=== PATIENT | male | born 1945 | race African-American/Black ===

== ENCOUNTER 2021-01-31 14:31 | Inpatient (IN) ==
[2021-01-31 17:59] LABS: ABS Lymphocytes 0.5 10^3/ul (1.0-4.8); ABS Monocytes 0.3 10^3/ul (0-0.8); ABS Neutrophils 1.7 10^3/ul (1.5-7.7); Eosinophil % 0.4 %; Hematocrit 31 % (42-52); Hemoglobin 10.2 g/dL (14.0-18.0); Lymphocyte % 18.8 %; Mean Corpuscular HGB Conc 33 g/dL (31-36); Mean Corpuscular Hemoglobin 29 pg (27-31); Mean Corpuscular Volume 90 fL (80-94); Mean Platelet Volume 9.1 fL (7.4-10.4); Nucleated Red Blood Cells % 0.1; Platelet Count 124 10^3/uL (150-450); Red Blood Count 3.49 10^6 /uL (4.18-5.48); Red Cell Distribution Width 15 % (10-15); White Blood Count 2.5 10^3/uL (3.5-10.8)
[2021-01-31 18:22] LABS: Albumin 3.6 g/dL (3.2-5.2); Albumin/Globulin Ratio 1.6 (1-3); C Reactive Protein 3.86 mg/L (<8.01); Calcium 8.7 mg/dL (8.6-10.3); Globulin 2.2 g/dL (2-4); Total Bilirubin 0.5 mg/dL (0.2-1.0); Total Protein 5.8 g/dL (6.4-8.9)
[2021-01-31 18:36] LABS: Potassium 6.4 mmol/L (3.5-5.0)
[2021-01-31] MEDS ORDERED: Albuterol 2.5mg/3 ml (0.083%) NEB.SOLN INH ONE (19:03)
[2021-01-31] MEDS ORDERED: Dextrose 50% VIAL 50 ml IV PRN (19:18)
[2021-01-31] MEDS ORDERED: Dextrose 50% VIAL 50 ml IV ONE (19:22)
[2021-01-31] MEDS ORDERED: Dextrose 50% Syringe 50 ml 25 GM/50 ML SYRINGE IV PUSH PRN ×2 (19:32→19:38)
[2021-01-31] MEDS ORDERED: Dextrose 50% Syringe 50 ml 25 GM/50 ML SYRINGE ONE (19:33)
[2021-01-31] MEDS ORDERED: Dextrose 50% Syringe 50 ml 25 GM/50 ML SYRINGE IV PUSH ONE (20:00)
[2021-01-31 21:43] LABS: Urine Appearance Cloudy; Urine Bilirubin Negative (Negative); Urine Blood Negative (Negative); Urine Color Yellow; Urine Glucose Negative (Negative); Urine Ketones Negative (Negative); Urine Nitrite Negative (Negative); Urine Protein 2+(100 mg/dL) (Negative); Urine Specific Gravity 1.013 (1.002-1.030); Urine Urobilinogen Negative (Negative)
[2021-01-31 21:52] LABS: Urine Bacteria 1+ (Absent); Urine Red Blood Cell Trace(0-2/hpf) (Absent); Urine Squamous Epithelial Cell Present (Absent); Urine White Blood Cell Absent (Absent)
[2021-01-31] MEDS ORDERED: NS 0.9% 1000 ml BAG 1,000 ML IV ONE (21:58)
[2021-01-31 22:52] LABS: Calcium 8.3 mg/dL (8.6-10.3)
[2021-01-31 22:53] LABS: Potassium 5.6 mmol/L (3.5-5.0)
[2021-01-31 22:57] LABS: Rapid COVID-19 Molecular Undetected (Undetected)
[2021-01-31] MEDS ORDERED: Lactated Ringers 1000 ml BAG 1,000 ML IV ONE (23:34)
[2021-02-01] MEDS ORDERED: Albuterol 2.5mg/3 ml (0.083%) NEB.SOLN INH ONE (02:09)
[2021-02-01] MEDS ORDERED: Patiromer POWDER 8.4 GM PAK PO ONE (02:10)
[2021-02-01 02:29] LABS: Corrected Retic Count 0.6 % (0.5-1.5); Hematocrit for Retic CNT 32 % (42-52); Immature Retic Fraction 0.36; RBC Retic Count 3.57 10^6/uL (4.18-5.48)
[2021-02-01 02:31] LABS: Activated Partial Thrombo Time 29.5 seconds (26.0-38.0); INR 1.09 (0.86-1.15)
[2021-02-01] MEDS ORDERED: D5W 500 ml BAG 500 ML IV SCH (03:00)
[2021-02-01 03:31] LABS: Burr Cells 1+
[2021-02-01 04:01] LABS: Schistocytes 2+
[2021-02-01 05:03] LABS: Uric Acid 10.3 mg/dL (4.4-7.6)
[2021-02-01 05:06] LABS: Calcium 8.1 mg/dL (8.6-10.3)
[2021-02-01 05:07] LABS: Urine Creatinine Concentration 153.5 mg/dL
[2021-02-01 05:08] LABS: Potassium 5.4 mmol/L (3.5-5.0)
[2021-02-01] MEDS ORDERED: Sulfamethox/Trimethoprim SS TAB 400/80 mg PO SCH (08:00)
[2021-02-01 15:25] LABS: Blood Urea Nitrogen 38 mg/dL (6-24); Calcium 7.3 mg/dL (8.6-10.3); Glucose 111 mg/dL (70-100); Sodium 137 mmol/L (135-145)
[2021-02-01 15:57] LABS: CO2 Carbon Dioxide 14 mmol/L (22-32); Chloride 117 mmol/L (101-111)
[2021-02-01 15:58] LABS: Anion Gap 6 mmol/L (2-11)
[2021-02-01] MEDS ORDERED: Sodium Bicarb 8.4% Vial 50 ML 150 MEQ in D5W 1000 ml BAG 850 ML IV SCH (16:00)
[2021-02-01] MEDS: Sodium Polystyrene ORAL.SUSP 15 GM/60 ML BTL PO SCH (20:33)
[2021-02-01 21:07] LABS: Phosphorus 2.9 mg/dL (2.5-5.0)
[2021-02-01 21:20] LABS: % Iron Saturation 27 % (15-55); Iron 75 ug/dL (50-212); Total Iron Binding Capacity 276 mcg/dL (250-450); Transferrin 197 mg/dL (203-362); Unsaturated Iron Binding < 261 ug/dL
[2021-02-01 21:42] LABS: Ferritin 470.9 ng/mL (24-336)
[2021-02-01 21:46] LABS: Folate 7.15 ng/mL (5.90-24.80)
[2021-02-01 21:47] LABS: Vitamin B12 738 pg/mL (180-914)
[2021-02-02] MEDS ORDERED: Morphine 2 MG/ML SYRINGE IV ONE (01:15)
[2021-02-02] MEDS: Sodium Bicarb 8.4% Vial 50 ML 150 MEQ in D5W 1000 ml BAG 850 ML IV SCH (09:01)
[2021-02-02 10:29] LABS: Hematocrit 30 % (42-52); Hemoglobin 9.7 g/dL (14.0-18.0); Mean Corpuscular HGB Conc 33 g/dL (31-36); Mean Corpuscular Hemoglobin 29 pg (27-31); Mean Corpuscular Volume 88 fL (80-94); Mean Platelet Volume 8.8 fL (7.4-10.4); Platelet Count 105 10^3/uL (150-450); Red Blood Count 3.38 10^6 /uL (4.18-5.48); Red Cell Distribution Width 15 % (10-15)
[2021-02-02 10:49] LABS: Calcium 7.9 mg/dL (8.6-10.3); Magnesium 1.6 mg/dL (1.9-2.7); Potassium 4.2 mmol/L (3.5-5.0)
[2021-02-02] MEDS ORDERED: Magnesium Sulf 4 GM/100 ML IV 4,000 MG/100 ML BAG IVPB ONE (11:17)
[2021-02-02 11:22] LABS: ABS Eosinophils 0.1 10^3/ul (0-0.6); ABS Lymphocytes 0.3 10^3/ul (1.0-4.8); ABS Monocytes 0.4 10^3/ul (0-0.8); ABS Neutrophils 1.1 10^3/ul (1.5-7.7); Eosinophil % 3.9 %; Hematocrit 30 % (42-52); Hemoglobin 9.7 g/dL (14.0-18.0); Mean Corpuscular HGB Conc 32 g/dL (31-36); Mean Corpuscular Hemoglobin 28 pg (27-31); Mean Corpuscular Volume 88 fL (80-94); Nucleated Red Blood Cells % 0.2; Platelet Count 103 10^3/uL (150-450); Red Cell Distribution Width 15 % (10-15)
[2021-02-02 15:36] LABS: C Reactive Protein 7.79 mg/L (<8.01)
[2021-02-02 21:07] LABS: Tacrolimus 6.3 ng/mL
[2021-02-03] MEDS ORDERED: Sodium Bicarb 8.4% Vial 50 ML 150 MEQ in D5W 1000 ml BAG 850 ML IV SCH (02:30)
[2021-02-03] MEDS: Sodium Bicarb 8.4% Vial 50 ML 150 MEQ in D5W 1000 ml BAG 850 ML IV SCH (02:35)
[2021-02-03 03:43] LABS: Urine Appearance Clear; Urine Bilirubin Negative (Negative); Urine Blood 1+ (Negative); Urine Color Yellow; Urine Glucose Negative (Negative); Urine Ketones Negative (Negative); Urine Nitrite Negative (Negative); Urine Protein 2+(100 mg/dL) (Negative); Urine Specific Gravity 1.011 (1.002-1.030); Urine Urobilinogen Negative (Negative)
[2021-02-03 03:45] LABS: Urine Bacteria 1+ (Absent); Urine Red Blood Cell Trace(0-2/hpf) (Absent); Urine Squamous Epithelial Cell Present (Absent); Urine White Blood Cell Trace(0-5/hpf) (Absent)
[2021-02-03 06:23] LABS: Calcium 7.6 mg/dL (8.6-10.3)
[2021-02-03 07:20] LABS: Magnesium 2.5 mg/dL (1.9-2.7)
[2021-02-03 07:29] LABS: ABS Eosinophils 0.1 10^3/ul (0-0.6); ABS Lymphocytes 0.3 10^3/ul (1.0-4.8); ABS Monocytes 0.4 10^3/ul (0-0.8); ABS Neutrophils 0.9 10^3/ul (1.5-7.7); Eosinophil % 3.9 %; Hematocrit 26 % (42-52); Hemoglobin 8.8 g/dL (14.0-18.0); Lymphocyte % 19.3 %; Mean Corpuscular HGB Conc 33 g/dL (31-36); Mean Corpuscular Hemoglobin 29 pg (27-31); Mean Corpuscular Volume 88 fL (80-94); Mean Platelet Volume 8.3 fL (7.4-10.4); Platelet Count 87 10^3/uL (150-450); Red Blood Count 3.02 10^6 /uL (4.18-5.48); Red Cell Distribution Width 15 % (10-15); White Blood Count 1.7 10^3/uL (3.5-10.8)
[2021-02-03] MEDS ORDERED: Dextrose 50% Syringe 50 ml 25 GM/50 ML SYRINGE IV PUSH PRN (16:48)
[2021-02-03] MEDS ORDERED: Insulin GLARGINE 100 un/ml 10 ml VIAL ONE (20:22)
[2021-02-04 05:54] LABS: ABS Eosinophils 0.1 10^3/ul (0-0.6); ABS Lymphocytes 0.3 10^3/ul (1.0-4.8); ABS Monocytes 0.4 10^3/ul (0-0.8); ABS Neutrophils 1.1 10^3/ul (1.5-7.7); Eosinophil % 3.6 %; Hematocrit 27 % (42-52); Hemoglobin 8.8 g/dL (14.0-18.0); Lymphocyte % 16.7 %; Mean Corpuscular HGB Conc 33 g/dL (31-36); Mean Corpuscular Hemoglobin 29 pg (27-31); Mean Corpuscular Volume 88 fL (80-94); Mean Platelet Volume 8.6 fL (7.4-10.4); Nucleated Red Blood Cells % 0.2; Platelet Count 91 10^3/uL (150-450); Red Blood Count 3.03 10^6 /uL (4.18-5.48); Red Cell Distribution Width 15 % (10-15); White Blood Count 1.8 10^3/uL (3.5-10.8)
[2021-02-04 06:23] LABS: Calcium 7.4 mg/dL (8.6-10.3); Magnesium 2.4 mg/dL (1.9-2.7); Potassium 4.1 mmol/L (3.5-5.0)
[2021-02-04] MEDS: Sodium Polystyrene ORAL.SUSP 15 GM/60 ML BTL PO SCH (08:30)
[2021-02-04 13:33] LABS: Tacrolimus 11.6 ng/mL
[2021-02-05 07:48] LABS: ABS Eosinophils 0.1 10^3/ul (0-0.6); ABS Lymphocytes 0.4 10^3/ul (1.0-4.8); ABS Monocytes 0.5 10^3/ul (0-0.8); ABS Neutrophils 1.1 10^3/ul (1.5-7.7); Eosinophil % 5.3 %; Hematocrit 27 % (42-52); Hemoglobin 8.9 g/dL (14.0-18.0); Lymphocyte % 18.1 %; Mean Corpuscular HGB Conc 33 g/dL (31-36); Mean Corpuscular Hemoglobin 29 pg (27-31); Mean Corpuscular Volume 88 fL (80-94); Mean Platelet Volume 8.5 fL (7.4-10.4); Nucleated Red Blood Cells % 0.1; Platelet Count 101 10^3/uL (150-450); Red Blood Count 3.07 10^6 /uL (4.18-5.48); Red Cell Distribution Width 15 % (10-15)
[2021-02-05 08:02] LABS: Calcium 7.6 mg/dL (8.6-10.3); Magnesium 2.4 mg/dL (1.9-2.7); Potassium 4.2 mmol/L (3.5-5.0)
[2021-02-05] MEDS ORDERED: Enoxaparin 30 MG/0.3 ML SYR SUBCUT SCH (10:00)
[2021-02-05] MEDS: Sulfamethox/Trimethoprim SS TAB 400/80 mg PO SCH (14:27)
[2021-02-05] MEDS ORDERED: Lactated Ringers 1000 ml BAG 1,000 ML IV ONE (15:57)
[2021-02-05 16:17] LABS: ABS Lymphocytes 0.1 10^3/ul (1.0-4.8); ABS Monocytes 0.3 10^3/ul (0-0.8); ABS Neutrophils 1.2 10^3/ul (1.5-7.7); Eosinophil % 1.8 %; Hematocrit 27 % (42-52); Lymphocyte % 9.1 %; Mean Corpuscular HGB Conc 34 g/dL (31-36); Mean Corpuscular Hemoglobin 30 pg (27-31); Mean Corpuscular Volume 88 fL (80-94); Nucleated Red Blood Cells % 0.1; Platelet Count 100 10^3/uL (150-450); Red Blood Count 3.04 10^6 /uL (4.18-5.48); Red Cell Distribution Width 15 % (10-15); White Blood Count 1.6 10^3/uL (3.5-10.8)
[2021-02-05 16:25] LABS: INR 1.12 (0.86-1.15)
[2021-02-05] MEDS: Heparin 5000 UNITS/ML 1 mL VIAL SUBCUT SCH ×2 (17:42→21:57)
[2021-02-06 05:05] LABS: ABS Eosinophils 0.1 10^3/ul (0-0.6); ABS Lymphocytes 0.3 10^3/ul (1.0-4.8); ABS Monocytes 0.4 10^3/ul (0-0.8); ABS Neutrophils 1.1 10^3/ul (1.5-7.7); Eosinophil % 3.2 %; Hematocrit 27 % (42-52); Lymphocyte % 15.7 %; Mean Corpuscular HGB Conc 33 g/dL (31-36); Mean Corpuscular Hemoglobin 29 pg (27-31); Mean Corpuscular Volume 88 fL (80-94); Mean Platelet Volume 8.8 fL (7.4-10.4); Nucleated Red Blood Cells % 0.1; Platelet Count 106 10^3/uL (150-450); Red Blood Count 3.11 10^6 /uL (4.18-5.48); Red Cell Distribution Width 15 % (10-15); White Blood Count 1.9 10^3/uL (3.5-10.8)
[2021-02-06 05:24] LABS: Calcium 7.6 mg/dL (8.6-10.3); Magnesium 2.4 mg/dL (1.9-2.7); Potassium 4.1 mmol/L (3.5-5.0)
[2021-02-06] MEDS: Heparin 5000 UNITS/ML 1 mL VIAL SUBCUT SCH ×3 (06:07→22:44)
[2021-02-06] MEDS: Sodium Polystyrene ORAL.SUSP 15 GM/60 ML BTL PO SCH (08:45)
[2021-02-06 22:34] LABS: CMV DNA DETECT/QT, P 721 IU/mL (Undetected)
[2021-02-07] MEDS: Heparin 5000 UNITS/ML 1 mL VIAL SUBCUT SCH ×3 (05:31→21:39)
[2021-02-07 05:46] LABS: Hematocrit 26 % (42-52); Hemoglobin 8.3 g/dL (14.0-18.0); Mean Corpuscular HGB Conc 33 g/dL (31-36); Mean Corpuscular Hemoglobin 29 pg (27-31); Mean Corpuscular Volume 88 fL (80-94); Mean Platelet Volume 8.9 fL (7.4-10.4); Platelet Count 101 10^3/uL (150-450); Red Cell Distribution Width 15 % (10-15); White Blood Count 1.5 10^3/uL (3.5-10.8)
[2021-02-07 06:11] LABS: Calcium 7.5 mg/dL (8.6-10.3); Magnesium 2.2 mg/dL (1.9-2.7); Potassium 3.8 mmol/L (3.5-5.0)
[2021-02-07 08:00] LABS: ABS Lymphocytes 0.2 10^3/ul (1.0-4.8); ABS Monocytes 0.4 10^3/ul (0-0.8); ABS Neutrophils 0.9 10^3/ul (1.5-7.7); Eosinophil % 3.1 %; Lymphocyte % 12.8 %; Nucleated Red Blood Cells % 0.1
[2021-02-07 10:11] LABS: Corrected Retic Count 0.6 % (0.5-1.5); Hematocrit for Retic CNT 26 % (42-52); Immature Retic Fraction 0.43; RBC Retic Count 2.95 10^6/uL (4.18-5.48)
[2021-02-07 15:21] LABS: Adenovirus F40/41 Negative (Negative); Astrovirus Negative (Negative); Cryptosporidium species Negative (Negative); Cyclospora cayetanensis Negative (Negative); Entamoeba histolytica Negative (Negative); Enteroaggregative E.coli(EAEC) Negative (Negative); Enteropathogenic Ecoli(EPEC) Negative (Negative); Enterotoxigenic Ecoli(ETEC) Negative (Negative); Norovirus GI/GII Negative (Negative); Plesiomonas shigelloides Negative (Negative); Salmonella species Negative (Negative); Sapovirus Negative (Negative); Shiga toxin producing E. coli Negative (Negative); Shigella/Enteroinvasive E.coli Negative (Negative); Specimen Source STOOL; Vibrio cholerae Negative (Negative); Yersinia species Negative (Negative)
[2021-02-07] MEDS ORDERED: Cefepime ADVAN 1 GM in NS 0.9% 50 ML 50 ML IVPB SCH (17:00)
[2021-02-07] MEDS: Cefepime 1 GM in Dextrose 1 GM/50 ML BAG IV SCH (17:43)
[2021-02-07] MEDS: Ampicillin ADVAN 1 GM in NS 0.9% 50 ML 50 ML IVPB SCH (21:38)
[2021-02-08] MEDS: Heparin 5000 UNITS/ML 1 mL VIAL SUBCUT SCH ×3 (05:24→20:24)
[2021-02-08 06:17] LABS: Hematocrit 25 % (42-52); Hemoglobin 8.3 g/dL (14.0-18.0); Mean Corpuscular HGB Conc 33 g/dL (31-36); Mean Corpuscular Hemoglobin 29 pg (27-31); Mean Corpuscular Volume 87 fL (80-94); Mean Platelet Volume 8.8 fL (7.4-10.4); Platelet Count 99 10^3/uL (150-450); Red Blood Count 2.87 10^6 /uL (4.18-5.48); Red Cell Distribution Width 15 % (10-15); White Blood Count 1.6 10^3/uL (3.5-10.8)
[2021-02-08 06:18] LABS: ABS Eosinophils 0.1 10^3/ul (0-0.6); ABS Lymphocytes 0.3 10^3/ul (1.0-4.8); ABS Monocytes 0.3 10^3/ul (0-0.8); ABS Neutrophils 0.9 10^3/ul (1.5-7.7); Lymphocyte % 18.1 %; Nucleated Red Blood Cells % 0.1
[2021-02-08 06:36] LABS: Calcium 7.7 mg/dL (8.6-10.3); Magnesium 2.2 mg/dL (1.9-2.7)
[2021-02-08] MEDS: Ampicillin ADVAN 1 GM in NS 0.9% 50 ML 50 ML IVPB SCH ×2 (09:03→20:17)
[2021-02-08] MEDS: Sulfamethox/Trimethoprim SS TAB 400/80 mg PO SCH (09:03)
[2021-02-08] MEDS: Cefepime 1 GM in Dextrose 1 GM/50 ML BAG IV SCH (17:54)
[2021-02-09] MEDS: Heparin 5000 UNITS/ML 1 mL VIAL SUBCUT SCH ×3 (05:37→22:46)
[2021-02-09] MEDS ORDERED: VALGANCICLOVIR 450 MG PO SCH (09:00)
[2021-02-09 10:43] LABS: ABS Eosinophils 0.1 10^3/ul (0-0.6); ABS Lymphocytes 0.3 10^3/ul (1.0-4.8); ABS Monocytes 0.6 10^3/ul (0-0.8); ABS Neutrophils 3.3 10^3/ul (1.5-7.7); Eosinophil % 1.7 %; Hematocrit 27 % (42-52); Hemoglobin 8.8 g/dL (14.0-18.0); Mean Corpuscular HGB Conc 33 g/dL (31-36); Mean Corpuscular Hemoglobin 29 pg (27-31); Mean Corpuscular Volume 89 fL (80-94); Mean Platelet Volume 8.7 fL (7.4-10.4); Nucleated Red Blood Cells % 0.1; Platelet Count 96 10^3/uL (150-450); Red Blood Count 3.03 10^6 /uL (4.18-5.48); Red Cell Distribution Width 15 % (10-15); White Blood Count 4.3 10^3/uL (3.5-10.8)
[2021-02-09 10:59] LABS: Albumin/Globulin Ratio 1.5 (1-3); Calcium 7.9 mg/dL (8.6-10.3); Direct Bilirubin 0.2 mg/dL (0.03-0.18); Indirect Bilirubin 0.5 mg/dL (0.3-1.0); Magnesium 2.1 mg/dL (1.9-2.7); Potassium 4.1 mmol/L (3.5-5.0); Total Bilirubin 0.7 mg/dL (0.2-1.0)
[2021-02-09] MEDS: Ampicillin ADVAN 1 GM in NS 0.9% 50 ML 50 ML IVPB SCH (11:02)
[2021-02-09] MEDS: GANCICLOVIR SODIUM IVPB SCH (11:16)
[2021-02-09] MEDS: NS 0.9% IVPB SCH (11:16)
[2021-02-10 06:14] LABS: Hematocrit 26 % (42-52); Hemoglobin 8.4 g/dL (14.0-18.0); Mean Corpuscular HGB Conc 33 g/dL (31-36); Mean Corpuscular Hemoglobin 29 pg (27-31); Mean Corpuscular Volume 88 fL (80-94); Mean Platelet Volume 9.1 fL (7.4-10.4); Platelet Count 94 10^3/uL (150-450); Red Blood Count 2.91 10^6 /uL (4.18-5.48); Red Cell Distribution Width 15 % (10-15); White Blood Count 5.7 10^3/uL (3.5-10.8)
[2021-02-10] MEDS: Heparin 5000 UNITS/ML 1 mL VIAL SUBCUT SCH ×3 (06:27→21:26)
[2021-02-10 06:30] LABS: Calcium 7.8 mg/dL (8.6-10.3); Magnesium 2.1 mg/dL (1.9-2.7); Potassium 4.2 mmol/L (3.5-5.0)
[2021-02-10 08:04] LABS: ABS Eosinophils 0.1 10^3/ul (0-0.6); ABS Lymphocytes 0.3 10^3/ul (1.0-4.8); ABS Monocytes 0.8 10^3/ul (0-0.8); ABS Neutrophils 4.4 10^3/ul (1.5-7.7); Eosinophil % 1.5 %; Lymphocyte % 5.5 %
[2021-02-10] MEDS: GANCICLOVIR SODIUM IVPB SCH (11:37)
[2021-02-10] MEDS: NS 0.9% IVPB SCH (11:37)
[2021-02-10 18:03] LABS: Norovirus G1 PCR Negative (Negative); Norovirus G2 PCR Negative (Negative)
[2021-02-11] MEDS: Heparin 5000 UNITS/ML 1 mL VIAL SUBCUT SCH ×3 (06:00→23:45)
[2021-02-11 06:31] LABS: Hematocrit 27 % (42-52); Hemoglobin 8.6 g/dL (14.0-18.0); Mean Corpuscular HGB Conc 32 g/dL (31-36); Mean Corpuscular Hemoglobin 29 pg (27-31); Mean Corpuscular Volume 88 fL (80-94); Mean Platelet Volume 8.5 fL (7.4-10.4); Platelet Count 85 10^3/uL (150-450); Red Blood Count 3.03 10^6 /uL (4.18-5.48); Red Cell Distribution Width 15 % (10-15); White Blood Count 6.5 10^3/uL (3.5-10.8)
[2021-02-11 06:49] LABS: ABS Eosinophils 0.1 10^3/ul (0-0.6); ABS Lymphocytes 0.4 10^3/ul (1.0-4.8); ABS Monocytes 1.2 10^3/ul (0-0.8); ABS Neutrophils 4.9 10^3/ul (1.5-7.7); Eosinophil % 1.5 %; Lymphocyte % 6.1 %
[2021-02-11 06:56] LABS: Albumin 2.9 g/dL (3.2-5.2); Albumin/Globulin Ratio 1.5 (1-3); Calcium 7.9 mg/dL (8.6-10.3); Potassium 4.3 mmol/L (3.5-5.0); Total Bilirubin 0.8 mg/dL (0.2-1.0); Total Protein 4.9 g/dL (6.4-8.9)
[2021-02-11] MEDS: GANCICLOVIR SODIUM IVPB SCH (10:57)
[2021-02-11] MEDS: NS 0.9% IVPB SCH (10:57)
[2021-02-11 16:40] LABS: Body Fluid Source Peritonial Fluid
[2021-02-11 17:10] LABS: Body Fluid Appearance Clear
[2021-02-11 17:11] LABS: Body Fluid Color Amber
[2021-02-11 19:33] LABS: Body Fluid WBC 352 /mcL
[2021-02-11 19:59] LABS: Body Fluid Mono 14 %; Body Fluid Total Cells Counted 200
[2021-02-12] MEDS: Heparin 5000 UNITS/ML 1 mL VIAL SUBCUT SCH ×2 (05:57→13:47)
[2021-02-12 06:00] LABS: Hematocrit 27 % (42-52); Hemoglobin 8.7 g/dL (14.0-18.0); Mean Corpuscular HGB Conc 33 g/dL (31-36); Mean Corpuscular Hemoglobin 29 pg (27-31); Mean Corpuscular Volume 89 fL (80-94); Mean Platelet Volume 8.7 fL (7.4-10.4); Platelet Count 82 10^3/uL (150-450); Red Blood Count 3.02 10^6 /uL (4.18-5.48); Red Cell Distribution Width 15 % (10-15); White Blood Count 5.8 10^3/uL (3.5-10.8)
[2021-02-12 06:07] LABS: Albumin 2.9 g/dL (3.2-5.2); Albumin/Globulin Ratio 1.5 (1-3); Magnesium 2.1 mg/dL (1.9-2.7); Potassium 4.4 mmol/L (3.5-5.0); Total Bilirubin 0.8 mg/dL (0.2-1.0); Total Protein 4.9 g/dL (6.4-8.9)
[2021-02-12 06:23] LABS: RBC Morphology Normal (Normal); Toxic Granulation 1+
[2021-02-12 06:24] LABS: ABS Basophils 0.1 10^3/ul (0-0.2); ABS Eosinophils 0.1 10^3/ul (0-0.6); ABS Lymphocytes 0.5 10^3/ul (1.0-4.8); ABS Monocytes 1.4 10^3/ul (0-0.8); ABS Neutrophils 3.8 10^3/ul (1.5-7.7); Eosinophil % 2.4 %; Lymphocyte % 7.9 %; Nucleated Red Blood Cells % 0.1
[2021-02-12 06:25] LABS: Dohle Bodies Present
[2021-02-12] MEDS: Sulfamethox/Trimethoprim SS TAB 400/80 mg PO SCH (09:07)
[2021-02-12] MEDS: NS 0.9% IVPB SCH (11:07)
[2021-02-12] MEDS: GANCICLOVIR SODIUM IVPB SCH (11:07)
[2021-02-12 14:02] VITALS: BP 132/76
[2021-02-13 12:13] LABS: Glucose, BF 179 mg/dL
[2021-02-13 12:15] LABS: Albumin, BF 1.3 g/dL; Fluid Type, Albumin PERITONEAL
[2021-02-13 13:52] LABS: Lactate Dehydrogenase, BF 177 U/L
[2021-02-13 13:55] LABS: Fluid Type, Protein, Total PERITONEAL; Total Protein, BF 1.8 g/dL
== END 2021-02-12 15:10 | disposition home or self-care (01) | DRG 809 ==
LOC: ED 14:31 → SUATTDRO 02-01 02:51 → EDHOLD 02-01 02:51 → MEDTELE 02-01 16:03
PROVIDERS: ADMIT Internal Medicine; ATTEND Student in an Organized Health Care Education/Training Program